=== PATIENT | female | born 1945 | race Two or more races ===

== ENCOUNTER 2023-09-14 12:12 | Outpatient (AMB) | payer MEDICARE, SELFPAY ==
[2023-09-14 12:13] VITALS: BP 118/68; PULSE 69; O2SAT 97
--- NOTE | 2023-09-14 12:13 | HO.NEPHOV_ITS ---
HPI HPI Comments History of Present Illness Details Elderly woman with a history of congestive heart failure with EF of 60% av block status post pacemaker placement aortic stenosis and hypertension with diabetes mellitus with chronic kidney disease. Baseline creatinine is around 2.2 mg/dL. She is here for further follow-up. She was accompanied by family member. Overall she is feeling well. No shortness of breath. No nausea or vomiting. No urinary symptoms. No edema. [facility] Surgical History (Updated 09/14/23 @ 12:17 by Allie Cortes) S/P removal of thyroid nodule Vital Signs 09/14/23 12:13 Weight 199 lb BP 118/68 Blood Pressure Location Lt brachial Position Sitting Pulse 69 Pulse Source Pulse Oximeter Pulse Oximetry (%) 97 Oxygen Delivery Method Room Air Physical Exam Vital Signs: Last Vital Signs Pulse 69 09/14/23 12:13 BP 118/68 09/14/23 12:13 Pulse Ox 97 09/14/23 12:13 Oxygen Delivery Method Room Air 09/14/23 12:13 Const General: comfortable Nutritional Appearance: well nourished Orientation/consciousness: patient oriented x3 HEENT Head: No normal to inspection Mouth: moist mucous membranes Neck Neck: Yes supple and Yes no JVD Resp Auscultation: clear to auscultation bilaterally, no rales and rub present Cardio Jugular venous distension: no JVD Palpation: no palpable S3 and no palpable S4 Heart sounds: no rubs GI Palpation (GI): Soft to palpation and nontender Percussion: No Fluid wave present General: Yes no CVA tenderness Back/Spine/Pelvis Back: no CVA tenderness Skin General skin exam: no rashes or lesions noted Neuro General: patient oriented x3 Extrem General: No clubbing and Yes edema (Trace) Assessment & Plan Assessment & Plan (1) CKD (chronic kidney disease): Code(s): N18.9 - Chronic kidney disease, unspecified Plan . Elderly woman with chronic kidney disease in the setting of diabetes mellitus hypertension. Overall renal function has been stable. Recent labs are not available and I will track down. Goal is to slow the progression of renal disease Continue to avoid nephrotoxic agents. Encouraged to stay on low-sodium diet Maintain blood pressure less than 130/80 and A1c less than 7%. She will benefit from SGLT2 inhibitor. Continue losartan for renal protection. All questions were answered Orders: Orders Comprehensive Met. Panel 4 Months N18.9 - Chronic kidney disease, unspecified Creatinine Urine 4 Months N05.9 - Unspecified nephritic syndrome with unspecified morphologic changes, N18.9 - Chronic kidney disease, unspecified Total Protein Urine Random 4 Months N18.9 - Chronic kidney disease, unspecified Complete Blood Count Auto Diff 4 Months N18.30 - Chronic kidney disease, stage 3 unspecified, N18.9 - Chronic kidney disease, unspecified Coding Level of Care Code Est Pt Level 4 (54456) Diagnoses CKD (chronic kidney disease) N18.9 Results Reviewed Results Reviewed: Labs pending Nephrology Results: Hgb 12.8 g/dL (12.0-16.0) 04/14/19 WBC 8.3 X10*3/uL (4.8-10.8) 04/14/19 Plt Count 280 X10*3/uL (160-400) 04/14/19 Sodium 142 MMOL/L (135-145) 04/14/19 Potassium 5.3 MMOL/L (3.3-5.1) H 04/14/19 Chloride 103 MMOL/L (96-108) 04/14/19 BUN 26 MG/DL (9-16) H 04/14/19 Creatinine 1.20 MG/DL (0.5-1.4) 04/14/19 Urine Protein 2+ (NEG - TRACE) H 04/14/19
== END 2023-09-14 12:46 | disposition home or self-care (01) ==
PROVIDERS: Visit Provider Internal Medicine Hypertension Specialist
DX: N18.9 Chronic kidney disease, unspecified (principal)
CPT/HCPCS: 99214

== ENCOUNTER → 2023-09-14 12:12 | Outpatient (BNVA) | payer MEDICARE, SELFPAY | PROVIDERS: Visit Provider Internal Medicine Hypertension Specialist | DX: I13.0 Hypertensive heart and chronic kidney disease with heart failure and stage 1 through stage 4 chronic kidney disease, or unspecified chronic kidney disease (principal); E11.22 Type 2 diabetes mellitus with diabetic chronic kidney disease; I50.9 Heart failure, unspecified; N18.30 Chronic kidney disease, stage 3 unspecified; I35.0 Nonrheumatic aortic (valve) stenosis; N05.9 Unspecified nephritic syndrome with unspecified morphologic changes; Z95.0 Presence of cardiac pacemaker | CPT/HCPCS: 99212 ==